=== PATIENT | male | born 1995 | race Caucasian/White ===

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

== ENCOUNTER 2018-04-16 17:09 | Emergency (ER) | payer OTHER ==
[~2018-04-16] VITALS: Ht 182.8 cm; Wt 95.3 kg
[~2018-04-16 17:09] MED LIST changes: +CYCLOBENZAPRINE5 M3 PO; +Motrin,Rufen800 MG PO; +NAPROSYN500 MG PO
[2018-04-16 17:37] LABS: BASO # 0.1 10*3/uL (0.0-0.1); BASO % 0.7 % (0.0-1.0); EOS # 0.2 10*3/uL (0.0-0.4); EOS % 1.5 % (1.0-4.0); HEMATOCRIT 44.2 % (42.0-52.0); HEMOGLOBIN 15.1 g/dl (14.0-18.0); LYMPH # 1.8 10*3/uL (1.3-4.4); LYMPH % 15.4 % (27.0-41.0); MEAN CELL VOLUME 85.2 fl (80.0-94.0); MEAN CORPUSCULAR HGB 29.1 pg (27.0-31.0); MEAN CORPUSCULAR HGB CONC 34.2 g/dl (33.0-37.0); MEAN PLATELET VOLUME 10.4 fl (9.6-12.3); MONO # 1.1 10*3/uL (0.1-1.0); MONO % 9.6 % (3.0-9.0); NEUT # 8.6 10*3/uL (2.3-7.9); NEUT % 72.5 % (47.0-73.0); PLATELET COUNT AUTOMATED 347 10*3/uL (130-400); RED BLOOD COUNT 5.19 10*6/uL (4.50-5.90); RED CELL DISTRI WIDTH 11.9 % (0-14.5); WHITE BLOOD COUNT 11.9 10*3/uL (4.8-10.8)
[2018-04-16 17:52] LABS: ALBUMIN 4.3 gm/dl (3.1-4.5); ALKALINE PHOSPHATASE 97 U/L (45-117); BUN 13 mg/dl (7-24); CHLORIDE 106 mmol/L (98-107); CREATININE 1.03 mg/dL (0.70-1.30); POTASSIUM 3.3 mmol/L (3.5-5.1); SGOT/AST 22 IU/L (3-35); SGPT/ALT 18 U/L (12-78); SODIUM 141 mmol/L (136-145); TOTAL PROTEIN 8.1 gm/dL (6.4-8.2)
[2018-04-16 18:32] LABS: URINE AMPHETAMINES > 1000 (1000ng/ml); URINE BARBITURATES < 200 (200ng/ml); URINE BENZODIAZEPINES < 200 (200ng/ml); URINE CANNABINOIDS (THC) < 50 (50ng/ml); URINE COCAINE < 300 (300ng/ml); URINE METHADONE < 300 (300ng/ml); URINE OPIATES < 300 (300ng/ml)
[2018-04-16 18:39] LABS: URINE PHENCYCLIDINE < 25 (25ng/ml)
[2018-04-16] MEDS ORDERED: CEPHALEXIN500 M1 PO (19:04)
[2018-04-16] MEDS ORDERED: NAPROSYN500 MG PO (19:04)
== END 2018-04-16 19:30 | disposition home or self-care (01) ==
LOC: ED 17:09
PROVIDERS: Nurse Practitioner Family
DX: L03.113 Cellulitis of right upper limb (principal); R60.0 Localized edema

== ENCOUNTER 2018-10-23 14:49 | Emergency (ER) | payer SELFPAY ==
[~2018-10-23] VITALS: Ht 182.8 cm; Wt 83.9 kg
[~2018-10-23 14:49] MED LIST changes: +CEPHALEXIN500 M1 PO
[2018-10-23] MEDS ORDERED: PREDNISONE20 M1 PO (15:31)
[2018-10-23] MEDS ORDERED: CEPHALEXIN500 M1 PO (15:31)
== END 2018-10-23 15:46 | disposition home or self-care (01) ==
LOC: ED 14:49
DX: S40.862A Insect bite (nonvenomous) of left upper arm, initial encounter (principal); Z79.2 Long term (current) use of antibiotics; Z79.899 Other long term (current) drug therapy; W57.XXXA Bitten or stung by nonvenomous insect and other nonvenomous arthropods, initial encounter; Y93.89 Activity, other specified; Y92.89 Other specified places as the place of occurrence of the external cause; Y99.8 Other external cause status

== ENCOUNTER 2019-01-11 16:12 | Emergency (ER) | payer SELFPAY ==
[~2019-01-11] VITALS: Ht 182.8 cm; Wt 90.7 kg
[~2019-01-11 16:12] MED LIST changes: +PREDNISONE20 M1 PO
[2019-01-11] MEDS ORDERED: AMOXICILLIN500 M3 PO (17:25)
== END 2019-01-11 17:38 | disposition home or self-care (01) ==
LOC: ED 16:12
DX: B34.9 Viral infection, unspecified (principal); J02.9 Acute pharyngitis, unspecified; Z79.899 Other long term (current) drug therapy

== ENCOUNTER 2019-03-12 11:01 | Emergency (ER) | payer SELFPAY ==
[~2019-03-12] VITALS: Ht 182.8 cm; Wt 108.9 kg
[~2019-03-12 11:01] MED LIST changes: +AMOXICILLIN500 M3 PO
[2019-03-12] MEDS ORDERED: CEPHALEXIN500 M1 PO (11:46)
[2019-03-12] MEDS ORDERED: IBUPROFEN600 MG PO (11:46)
== END 2019-03-12 13:24 | disposition home or self-care (01) ==
LOC: ED 11:01
DX: L08.9 Local infection of the skin and subcutaneous tissue, unspecified (principal)

== ENCOUNTER 2019-04-04 22:49 | Emergency (ER) | payer SELFPAY ==
[~2019-04-04] VITALS: Ht 182.8 cm; Wt 108.9 kg
[~2019-04-04 22:49] MED LIST changes: +IBUPROFEN600 MG PO
[2019-04-04] MEDS ORDERED: CEFADROXIL500 M1 PO (23:02)
== END 2019-04-04 23:25 | disposition home or self-care (01) ==
LOC: ED 22:49
DX: S41.111A Laceration without foreign body of right upper arm, initial encounter (principal); W26.8XXA Contact with other sharp object(s), not elsewhere classified, initial encounter; Y93.89 Activity, other specified; Y92.89 Other specified places as the place of occurrence of the external cause; Y99.8 Other external cause status

== ENCOUNTER 2019-06-06 13:09 | Emergency (ER) | payer SELFPAY ==
[~2019-06-06] VITALS: Ht 185.4 cm; Wt 108.9 kg
[~2019-06-06 13:09] MED LIST changes: +CEFADROXIL500 M1 PO
[2019-06-06] MEDS ORDERED: Kenalog 0.5% Cr15 GM T (14:37)
== END 2019-06-06 14:45 | disposition home or self-care (01) ==
LOC: ED 13:09
DX: L25.8 Unspecified contact dermatitis due to other agents (principal)

== ENCOUNTER 2021-01-12 13:43 | Emergency (ER) | payer OTHER ==
[~2021-01-12] VITALS: Ht 182.8 cm; Wt 113.4 kg
[~2021-01-12 13:43] MED LIST changes: +Kenalog 0.5% Cr15 GM T
[2021-01-12 16:13] LABS: BASO # 0.1 10*3/uL (0.0-0.1); BASO % 0.5 % (0.0-1.0); EOS # 0.2 10*3/uL (0.0-0.4); EOS % 1.5 % (1.0-4.0); HEMATOCRIT 43.9 % (42.0-52.0); LYMPH % 16.5 % (27.0-41.0); MEAN CELL VOLUME 88.7 fl (80.0-94.0); MEAN CORPUSCULAR HGB 28.5 pg (27.0-31.0); MEAN CORPUSCULAR HGB CONC 32.1 g/dl (33.0-37.0); MEAN PLATELET VOLUME 10.3 fl (9.6-12.3); MONO # 1.1 10*3/uL (0.1-1.0); MONO % 9.1 % (3.0-9.0); NEUT # 8.9 10*3/uL (2.3-7.9); PLATELET COUNT AUTOMATED 316 10*3/uL (130-400); RED BLOOD COUNT 4.95 10*6/uL (4.50-5.90); RED CELL DISTRI WIDTH 12.2 % (0-14.5); WHITE BLOOD COUNT 12.3 10*3/uL (4.8-10.8)
[2021-01-12 16:33] LABS: ALBUMIN 3.6 gm/dl (3.1-4.5); ALKALINE PHOSPHATASE 122 U/L (45-117); BUN 15 mg/dl (7-24); CHLORIDE 105 mmol/L (98-107); CREATININE 1.02 mg/dL (0.70-1.30); LIPASE 42 U/L (73-393); POTASSIUM 3.9 mmol/L (3.5-5.1); SGOT/AST 24 IU/L (3-35); SGPT/ALT 33 U/L (12-78); SODIUM 141 mmol/L (136-145); TOTAL PROTEIN 7.7 gm/dL (6.4-8.2)
[2021-01-12] MEDS ORDERED: PEPCID20 MG PO (16:53)
== END 2021-01-12 17:08 | disposition home or self-care (01) ==
LOC: ED 13:43
PROVIDERS: Emergency Medicine
DX: K29.70 Gastritis, unspecified, without bleeding (principal)